=== PATIENT | female | born 1970 | race Caucasian/White ===

== ENCOUNTER 2020-12-28 11:46 | Outpatient (CLI) | payer OTHER, SELFPAY | END 2020-12-28 11:47 | disposition home or self-care (01) | LOC: ANHCOVIDVC 11:46 | PROVIDERS: PCP Family Medicine | DX: Z23 Encounter for immunization (principal) | CPT/HCPCS: 0001A; 91300 ==

== ENCOUNTER 2021-01-18 11:46 | Outpatient (CLI) | payer OTHER, SELFPAY | END 2021-01-18 11:47 | disposition home or self-care (01) | LOC: ANHCOVIDVC 11:46 | PROVIDERS: PCP Family Medicine | DX: Z23 Encounter for immunization (principal) | CPT/HCPCS: 0002A; 91300 ==

== ENCOUNTER → 2021-06-08 12:30 | Outpatient (CLI) | payer OTHER, SELFPAY ==
--- NOTE | ~2021-06-08 | DEXA_ITS ---
Bone Density Report Name: Lulu Martino Age: 51 Sex: Female Ethnicity: White Date of : 1970 Indication: postmenopausal; screening for osteoporosis; hysterectomy; Referring Provider: ADY GARY Study: Bone densitometry was performed. Exam Date: June 08, 2021 Accession number: [id number] Bone Density: Region BMD T-score Z-score Classification AP Spine (L1-L4) 0.965 -0.7 0.2 Normal Femoral Neck (Left) 0.680 -1.5 -0.6 Osteopenia Total Hip (Left) 0.850 -0.8 -0.2 Normal Femoral Neck (Right) 0.648 -1.8 -0.9 Osteopenia Total Hip (Right) 0.826 -0.9 -0.4 Normal Total Hip Mean 0.838 -0.9 -0.3 Normal World Health Organization criteria for BMD impression classify patients as: Normal (T-score at or above -1.0), Osteopenia (T-score between -1.0 and -2.5), or Osteoporosis (T-score at or below -2.5). 10-year Fracture Risk: FRAX not reported because: Treated for osteoporosis Clinical Information Provided by Patient: Is being treated for osteoporosis Has used the following medications: HRT (i.e. estrogen/hormone therapy), Vitamin D Has the following medical conditions: Hysterectomy Patient maximum height was 62 Menopause Age: 39 No regular weight bearing exercise Drinks caffeinated beverages Onset of menses at age 12 Number of children 2 Impression: The patient has low bone mass, based on the Right Femoral Neck T-score. Discussion: It is important to ask patients whether they are taking their medications and to encourage continued and appropriate compliance with their osteoporosis therapies to reduce fracture risk. It is also important to review their risk factors and encourage appropriate calcium and vitamin D intakes, exercise, fall prevention and other lifestyle measures. Follow-Up: Consider a repeat BMD and Vertebral Fracture Assessment (VFA) exam in 2 years or sooner if medically necessary, to reassess this patient's status. Reported by: LIZZIE on 06/08/2021 1:19:00 PM. Reviewed, dictated and finalized at location A. NORIS
== END ==
PROVIDERS: PCP Family Medicine; Visit Provider Obstetrics & Gynecology Gynecology
DX: M85.88 Other specified disorders of bone density and structure, other site (principal); Z78.0 Asymptomatic menopausal state; M85.852 Other specified disorders of bone density and structure, left thigh; M85.851 Other specified disorders of bone density and structure, right thigh
CPT/HCPCS: 77080

== ENCOUNTER → 2023-04-20 11:01 | Outpatient (CLI) | payer OTHER, SELFPAY ==
--- NOTE | ~2023-04-20 | XR_ITS ---
AP view of the pelvis and AP and lateral views of the bilateral hips Clinical history: Pain Findings: No acute fracture or dislocation is seen. Osseous alignment is anatomic. There is mild oste oarthritic change of both hip joints. Bilateral SI joints appear unremarkable. Soft tissues are unrem arkable. Impression: Mild osteoarthritic change of both hip joints. Reviewed, dictated and finalized at location . Impression: Mild osteoarthritic change of both hip joints.
== END ==
PROVIDERS: PCP Family Medicine; Visit Provider Internal Medicine
DX: M45.0 Ankylosing spondylitis of multiple sites in spine (principal); M46.1 Sacroiliitis, not elsewhere classified; M77.9 Enthesopathy, unspecified; M35.01 Sjogren syndrome with keratoconjunctivitis; M16.0 Bilateral primary osteoarthritis of hip
CPT/HCPCS: 73521

== ENCOUNTER 2024-06-27 08:03 | Outpatient (CLI) | payer OTHER, SELFPAY ==
--- NOTE | ~2024-06-27 | US_ITS ---
Abdominal Sonogram: Real-time sonographic imaging of the abdomen was performed. Clinical History: Abnormal findings of blood chemistry Findings: The liver appears normal with no evidence of mass lesion or bile duct dilatation. Main por rosalio vein demonstrates normal direction of flow. The spleen is normal in size without evidence of foca l lesion. The gallbladder is well distended, and appears normal with no evidence of gallstone or wal l thickening. The common bile duct measures 3 mm. The visualized pancreas, aorta, and IVC are unrema rkable. The right kidney measures 9.5 cm in length and the left kidney measures 8.4 cm. There is no hydronephrosis or renal calculus. Impression: Unremarkable abdominal ultrasound. Reviewed, dictated and finalized at location M. Impression: Unremarkable abdominal ultrasound.
== END 2024-06-27 08:04 | disposition home or self-care (01) ==
LOC: MICIMG 08:04
PROVIDERS: PCP Family Medicine; Visit Provider Physician Assistant Medical
DX: R79.89 Other specified abnormal findings of blood chemistry (principal)
CPT/HCPCS: 76700

== ENCOUNTER 2024-10-02 07:37 | Outpatient (CLI) | payer OTHER, SELFPAY ==
--- NOTE | ~2024-10-02 | DEXA_ITS ---
Bone Density Report Name: PRANAV BARAJAS Age: 54 Sex: Female Ethnicity: White Date of : 1970 Indication: postmenopausal; screening for osteoporosis; height loss; hysterectomy; Referring Provider: ADY GARY Study: Bone densitometry was performed. Exam Date: October 02, 2024 Accession number: [id number] Bone Density: Region BMD T-score Z-score Classification AP Spine(L1-L4) 0.971 -0.7 0.5 Normal Femoral Neck (Left) 0.653 -1.8 -0.6 Osteopenia Total Hip (Left) 0.848 -0.8 0.0 Normal Femoral Neck (Right) 0.641 -1.9 -0.7 Osteopenia Total Hip (Right) 0.824 -1.0 -0.2 Normal Total Hip Mean 0.836 -0.9 -0.1 Normal World Health Organization criteria for BMD impression classify patients as: Normal (T-score at or above -1.0), Osteopenia (T-score between -1.0 and -2.5), or Osteoporosis (T-score at or below -2.5). 10-year Fracture Risk(1): Major Osteoporotic Fracture 7.8% Hip Fracture 0.8% Reported Risk Factors: [place] (), Neck BMD=0.641, BMI=26.2 (1) FRAX(R) Version 3.08. Fracture probability calculated for an untreated patient. Fracture probability may be lower if the patient has received treatment. Clinical Information Provided by Patient: Has used the following medications: Vitamin D Has the following medical conditions: Hysterectomy Patient maximum height was 63.0 Menopause Age: 35 No regular weight bearing exercise Drinks caffeinated beverages Onset of menses at age 10 Number of children 2 Impression: The patient has low bone mass, based on the Right Femoral Neck T-score. The patient has an estimated ten-year risk of hip fracture of 0.8% and an estimated ten-year risk of major fracture of 7.8%, based on the WHO FRAX algorithm. Discussion: BONE DENSITY IS LOW AT ONE OR MORE SKELETAL SITES. This patient's lowest T-score is low at one or more skeletal sites. It meets the World Health Organization's (WHO) criteria for ?low bone mass? (T-score between -1.0 and -2.5). The patient's 10-year risk of fracture as calculated by FRAX is less than the threshold where pharmacological therapy is recommended by the National Osteoporosis Foundation (NOF). However, all treatment decisions require clinical judgment and consideration of individual patient factors, including patient preferences, comorbidities, previous drug use, risk factors not captured in the FRAX model (e.g., frailty, falls, vitamin D deficiency, increased bone turnover, interval significant decline in bone density) and possible under or overestimation of fracture risk by FRAX. The patient should follow a healthful lifestyle (good nutrition with adequate calcium and vitamin D, and appropriate weight-bearing exercise). Follow-Up: Consider repeating this study in 2 to 3 years to reassess this patient's status, or sooner if there is some new clinical indication. Reported by: LIZZIE on 10/02/2024 8:15:00 AM. Reviewed, dictated and finalized at location ANick HAMM
--- OUTSIDE RECORDS SUMMARY | 2024-10-03 21:18 | XMS_ITS | Referral Summary ---
Author Organization [facility] Address [address] [place] [address] Care Team Providers Care Sample Maker Hand Name Role Phone Jignesh Gonzalez MD Primary Care Provider [phone] Encounters Date Type Department Care Team Description 09/25/2024 2:45 PM DRAPERY CUTTER MACHINE - 09/25/2024 11:59 PM DRAPERY CUTTER MACHINE Hospital Encounter [facility] [address] [place] [phone] Right hip pain Discharge Disposition: Discharge to home or self care 09/25/2024 3:15 PM DRAPERY CUTTER MACHINE Office Visit [facility] Orthopaedic Surgery [facility] Medical Office Building [address] [place] [phone] Kurt Stoner MD Primary osteoarthritis of right hip (Primary Dx); Right hip pain 08/26/2024 11:08 AM DRAPERY CUTTER MACHINE - 08/26/2024 11:59 PM DRAPERY CUTTER MACHINE Hospital Encounter [facility] [address] [place] [address] Nilda Santana MD Densley, Ashton Deloy, DO Primary osteoarthritis of right hip Discharge Disposition: Discharge to home or self care 08/23/2024 Telephone [facility] Radiology [address] [place] [address] Lina Carter, B.A. 08/19/2024 8:00 AM DRAPERY CUTTER MACHINE Office Visit [facility] Orthopaedic Surgery [address] [place] [address] Medical Office Building [address] [place] [address] Francesca Steel PA Primary osteoarthritis of right hip (Primary Dx) 08/15/2024 10:00 AM DRAPERY CUTTER MACHINE - 08/15/2024 11:59 PM DRAPERY CUTTER MACHINE [facility] [address] [place] [address] [address] [phone] Primary osteoarthritis of right hip Discharge Disposition: Discharge to home or self care 08/15/2024 9:00 AM DRAPERY CUTTER MACHINE - 08/15/2024 11:59 PM DRAPERY CUTTER MACHINE Hospital Encounter [facility] [address] [place] [address] [address] [phone] Chronic low back pain, unspecified back pain laterality, unspecified whether sciatica present Discharge Disposition: Discharge to home or self care 08/15/2024 9:30 AM DRAPERY CUTTER MACHINE Office Visit [facility] Orthopaedic Surgery [address] [place] [address] Medical Office [facility] [address] [place] [phone] Denys Darden MD Chronic low back pain, unspecified back pain laterality, unspecified whether sciatica present (Primary Dx); Spinal stenosis of lumbar region, unspecified whether neurogenic claudication present; Bulging lumbar disc; Primary osteoarthritis of right hip 07/24/2024 6:09 PM DRAPERY CUTTER MACHINE - 07/24/2024 11:59 PM DRAPERY CUTTER MACHINE Hospital Encounter [facility] [address] [place] [address] Discharge Disposition: Discharge to home or self care 07/24/2024 6:07 PM DRAPERY CUTTER MACHINE - 07/24/2024 11:59 PM DRAPERY CUTTER MACHINE Hospital Encounter [facility] Radiology [facility] [address] [place] [address] Discharge Disposition: Discharge to home or self care from Last 3 Months Allergies Active Allergy Reactions Criticality Noted Date Comments Sulfa (Sulfonamide Antibiotics) Rash Reaction: RASH Sulfanilamide Rash Reaction: Rash, Medications Humira Pen 40 mg/0.8 mL pen injector kit 08/07/20 24 Active estradioL (CLIMARA) 0.1 mg/24 hr 1 patch(es), TransDermal, q7days, Patch, 0 06/15/20 13 Active folic acid (FOLVITE) 1 mg tablet 05/14/20 24 Active levothyroxine (SYNTHROID) 50 mcg tablet Take 1 tablet (50 mcg total) by mouth daily before breakfast Active meloxicam (MOBIC) 7.5 mg tablet TAKE 1 TABLET BY MOUTH DAILY NEEDED FOR ARTHRITIS DISCOMFORT 05/22/20 24 Active traZODone (DESYREL) 50 mg tablet 05/25/20 24 Active traMADoL (ULTRAM) 50 mg tablet TAKE 1 TABLET WITH TYLENOL BY MOUTH THREE TIMES DAILY FOR BAD PAIN CONTROL 08/11/20 24 Active spironolactone (ALDACTONE) 100 mg tablet Take 1 tablet (100 mg total) by mouth daily 07/11/20 24 Active cetirizine (ZyrTEC) 10 mg capsule 09/11/19 23 Active citalopram hydrobromide (CITALOPRAM ORAL) 09/11/19 20 Active magnesium citrate solution Take 296 mL by mouth once for 1 dose 296 mL 2 04/27/20 24 025 Discontinu ed(Therapy completed) estradioL (Vivelle-Dot) 0.1 mg/24 hr 1 patch(es), Topical, twice a week, 8 patch(es), Patch, 0 06/13/20 13 025 Discontinu ed(Therapy completed) mupirocin (BACTROBAN) 2 % ointmentIndicati ons:Prophylactic antibiotic Apply topically 2 (two) times a day for 5 days APPLY TO NOSTRILS TWICE A DAY. STARTING 5 DAYS PRIOR TO SURGERY. 22 g 09/26/19 25 025 Active Problems Problem Noted Date Diagnosed Date Primary osteoarthritis of right hip 09/26/2024 RUQ abdominal pain 08/15/2024 Regurgitation of food 08/15/2024 Other gastritis without bleeding 08/15/2024 Multiple thyroid nodules 08/15/2024 Gastro-esophageal reflux disease with esophagiti s 08/15/2024 Functional dyspepsia 08/15/2024 Dyspepsia 08/15/2024 Irritable bowel syndrome with constipation 08/15 Constipation 08/15/2024 Menopausal syndrome 03/28/2014 Overview (12/16/2016): Menopausal syndrome Thyroid nodule 11/04/2013 Dry eyes 11/04/2013 Immunizations Name Administration Dates Next Due Influenza, Unspecified 06/11/2012 Tdap 07/07/2024 Social History Tobacco Use Types Packs/Day Years Used Date Smoking Tobacco: Never Cigarettes Smokeless Tobacco: Never Tobacco Cessation:Counseling Given: Not Answered Alcohol Use Standard Drinks/Week Comments Yes 0 (1 standard drink = 0.6 oz pur e alcohol) Personal Safety Answer Date Recorded Have you ever been in or are you currently in a harmful physical or emotional relationship or is someone making you feel afraid or unsafe? 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 on file Not on file Not on file Last Filed Vital Signs Vital Sign Reading Time Taken Comments Blood Pressure 124/71 08/26/2024 11:33 AM DRAPERY CUTTER MACHINE Pulse 71 08/26/2024 11:33 AM DRAPERY CUTTER MACHINE Temperature 36.6 ??C (97.9 ??F) 08/26/2024 11:[address] Respiratory Rate 20 08/26/2024 11:33 AM DRAPERY CUTTER MACHINE Oxygen Saturation 99% 08/26/2024 11:33 AM DRAPERY CUTTER MACHINE Inhaled Oxygen Concentration - - Weight 59.9 kg (132 lb) 09/25/2024 4:08 PM DRAPERY CUTTER MACHINE Height 160 cm (5' 3 ) 09/25/2024 4:08 PM DRAPERY CUTTER MACHINE Body Mass Index 23.38 09/25/2024 4:08 PM DRAPERY CUTTER MACHINE Plan of Treatment Upcoming Encounters Date Type Department Care Team (Latest Contact Info) Description 11/19/2024 1:05 PM CDT Hospital Encounter [facility] Operating Room [address] [address] Kurt Stoner MD [address] [facility] [address] [place] [address] 11/19/2024 1:05 PM CDT - 11/19/2024 3:45 PM CDT Surgery [facility] Operating Room [address] [address] Kurt Stoner MD [address] [facility] [address] [place] [address] ARTHROPLASTY TOTAL HIP - ANTERIOR APPROACH Scheduled Procedures Name Priority Associated Diagnoses Date/Ti me ARTHROPLASTY TOTAL HIP - ANTERIOR APPROACH Primary osteoarthritis of right hip 11/19/2024 1:05 PM CDT Procedures Procedure Name Priority Date/Time Associated Diagnosis Comments XR PELVIS 1 OR 2 VIEWS Schedule Routine, Read Routine (OP Routine) 09/25/2024 3:31 PM DRAPERY CUTTER MACHINE Right hip pain XR SCOLIOSIS AP LAT Schedule Routine, Read Routine (OP Routine) 09/25/2024 3:31 PM DRAPERY CUTTER MACHINE Right hip pain FLUORO GUIDED INJECTION HIP RIGHT Schedule Routine, Read Routine (OP Routine) 08/26/2024 12:26 PM DRAPERY CUTTER MACHINE Primary osteoarthritis of right hip XR HIP RIGHT W PELVIS 2 OR 3 VIEWS Schedule Routine, Read Routine (OP Routine) 08/15/2024 11:14 AM DRAPERY CUTTER MACHINE Primary osteoarthritis of right hip XR LUMBAR SPINE AP LAT FLEX EX Schedule Routine, Read Routine (OP Routine) 08/15/2024 9:44 AM DRAPERY CUTTER MACHINE Chronic low back pain, unspecified back pain laterality, unspecified whether sciatica present NEURO MR OUTSIDE REFERENCE Routine 07/24/2024 6:09 PM DRAPERY CUTTER MACHINE MSK MR OUTSIDE REFERENCE Routine 07/24/2024 6:07 PM DRAPERY CUTTER MACHINE from Last 3 Months Results * XR Pelvis 1 or 2 Views (09/25/2024 3:31 PM DRAPERY CUTTER MACHINE) Anatomical Region Laterality Modality Body, Pelvis N/A Computed Radiogr aphy 09/25/2024 4:11 PM DRAPERY CUTTER MACHINE Impressions 09/25/2024 4:11 PM DRAPERY CUTTER MACHINE 1. ??Mild L3-L4 and moderate L5-S1 degenerative disc disease as well as mild multilevel cervical degenerative disc disease. 2. ??Unchanged grade 1 anterolisthesis of L3 on L4. Electronically signed by: Mj Gibson D.O. Narrative 09/25/2024 4:11 PM DRAPERY CUTTER MACHINE EXAMINATION: XR SCOLIOSIS AP AND LATERAL, XR PELVIS 1 OR 2 VIEWS HISTORY: Hip Pain FINDINGS: Comparison is made to 08/15/2024 lumbar radiograph. No significant scoliotic curvature. There is minimal rotatory proximal segment thoracolumbar dextrocurvature. No significant truncal imbalance or pelvic obliquity. Mild L3-L4 and mild to moderate L5-S1 degenerative disc disease. Straightening of the cervical spine with mild multilevel cervical degenerative disc disease. Minimal grade 1 anterolisthesis of L3 on L4, unchanged from prior. Procedure Note Mj Gibson, DO - 09/25/2024 EXAMINATION: XR SCOLIOSIS AP AND LATERAL, XR PELVIS 1 OR 2 VIEWS HISTORY: Hip Pain FINDINGS: Comparison is made to 08/15/2024 lumbar radiograph. No significant scoliotic curvature. There is minimal rotatory proximal segment thoracolumbar dextrocurvature. No significant truncal imbalance or pelvic obliquity. Mild L3-L4 and mild to moderate L5-S1 degenerative disc disease. Straightening of the cervical spine with mild multilevel cervical degenerative disc disease. Minimal grade 1 anterolisthesis of L3 on L4, unchanged from prior. IMPRESSION: 1. Mild L3-L4 and moderate L5-S1 degenerative disc disease as well as mild multilevel cervical degenerative disc disease. 2. Unchanged grade 1 anterolisthesis of L3 on L4. Electronically signed by: Mj Gibson D.O. Kurt Stoner MD IMG XR PROCEDURES Final Result * XR Scoliosis Ap and Lateral (09/25/2024 3:31 PM DRAPERY CUTTER MACHINE) Anatomical Region Laterality Modality Spine N/A Computed Radiogr aphy 09/25/2024 4:11 PM DRAPERY CUTTER MACHINE Impressions 09/25/2024 4:11 PM DRAPERY CUTTER MACHINE 1. ??Mild L3-L4 and moderate L5-S1 degenerative disc disease as well as mild multilevel cervical degenerative disc disease. 2. ??Unchanged grade 1 anterolisthesis of L3 on L4. Electronically signed by: Mj Gibson D.O. Narrative 09/25/2024 4:11 PM DRAPERY CUTTER MACHINE EXAMINATION: XR SCOLIOSIS AP AND LATERAL, XR PELVIS 1 OR 2 VIEWS HISTORY: Hip Pain FINDINGS: Comparison is made to 08/15/2024 lumbar radiograph. No significant scoliotic curvature. There is minimal rotatory proximal segment thoracolumbar dextrocurvature. No significant truncal imbalance or pelvic obliquity. Mild L3-L4 and mild to moderate L5-S1 degenerative disc disease. Straightening of the cervical spine with mild multilevel cervical degenerative disc disease. Minimal grade 1 anterolisthesis of L3 on L4, unchanged from prior. Procedure Note Mj Gibson, DO - 09/25/2024 EXAMINATION: XR SCOLIOSIS AP AND LATERAL, XR PELVIS 1 OR 2 VIEWS HISTORY: Hip Pain FINDINGS: Comparison is made to 08/15/2024 lumbar radiograph. No significant scoliotic curvature. There is minimal rotatory proximal segment thoracolumbar dextrocurvature. No significant truncal imbalance or pelvic obliquity. Mild L3-L4 and mild to moderate L5-S1 degenerative disc disease. Straightening of the cervical spine with mild multilevel cervical degenerative disc disease. Minimal grade 1 anterolisthesis of L3 on L4, unchanged from prior. IMPRESSION: 1. Mild L3-L4 and moderate L5-S1 degenerative disc disease as well as mild multilevel cervical degenerative disc disease. 2. Unchanged grade 1 anterolisthesis of L3 on L4. Electronically signed by: Mj Gibson D.O. Kurt Stoner MD IMG XR PROCEDURES Final Result * FL Fluoro Guided Injection Hip Right (08/26/2024 12:26 PM DRAPERY CUTTER MACHINE) Anatomical Region Laterality Modality Hip Right X-Ray Angiograph y 08/26/2024 12:2 9 PM DRAPERY CUTTER MACHINE Impressions 08/26/2024 5:19 PM DRAPERY CUTTER MACHINE Successful right hip joint injection under fluoroscopic guidance with reduction of the patient's presenting pain at the conclusion of the procedure. Dictated by: Farida Davis MD, PhD The radiology attending physician has personally reviewed this study, and had reviewed and/or edited this written report and agrees with it. Electronically signed by: Mj Gibson D.O. Narrative 08/26/2024 5:19 PM DRAPERY CUTTER MACHINE EXAMINATION: ??Right hip joint injection under fluoroscopic guidance HISTORY: 54-year-old with right hip osteoarthritis presenting for right hip joint injection ATTENDING PRESENCE: Mj Gibson D.O., was present from the beginning to the end of the procedure. Dr. Farida Davis (global consumer sector vice president) was present and participated in the procedure. SEDATION: The patient did not require conscious sedation for the procedure. TECHNIQUE: ??The risks, benefits and alternatives were discussed and informed consent was obtained. ??Prior to beginning the procedure, [place] Protocol was performed to confirm the patient's identity and the planned procedure. Sterile barriers used during the procedure included cap, mask, hand hygiene, sterile gloves, and sterile drape. ??Chloraprep was used for cutaneous antisepsis. The patient was placed supine on the procedure table. The right hip joint was localized with fluoroscopic guidance. ??Local anesthesia was achieved with subcutaneous injection of 1% lidocaine 2 mL. ??A 22-gauge needle was then introduced into the joint under imaging guidance. ??5 mL of Omnipaque 300 was injected to verify intra-articular position of the needle tip. A mixture containing Kenalog (40 mg/mL) 1 mL, 0.25% bupivacaine 1 mL, and Omnipaque-300 1mL was then injected into the joint. ??The needle was removed. ??The skin was cleansed with hydrogen peroxide, and a bandage was placed. ?? Complication: None Type: None ?? ESTIMATED BLOOD LOSS: None CONDITION: Stable condition. DISCHARGED TO: Home FINDINGS: Imaging confirms intra-articular position of the needle tip. ?? Following the injection, the patient reported reduction in symptoms. Procedure Note Mj Gibson DO - 08/26/2024 EXAMINATION: Right hip joint injection under fluoroscopic guidance HISTORY: 54-year-old with right hip osteoarthritis presenting for right hip joint injection ATTENDING PRESENCE: Mj Gibson D.O., was present from the beginning to the end of the procedure. Dr. Farida Davis (global consumer sector vice president) was present and participated in the procedure. SEDATION: The patient did not require conscious sedation for the procedure. TECHNIQUE: The risks, benefits and alternatives were discussed and informed consent was obtained. Prior to beginning the procedure, [place] Protocol was performed to confirm the patient's identity and the planned procedure. Sterile barriers used during the procedure included cap, mask, hand hygiene, sterile gloves, and sterile drape. Chloraprep was used for cutaneous antisepsis. The patient was placed supine on the procedure table. The right hip joint was localized with fluoroscopic guidance. Local anesthesia was achieved with subcutaneous injection of 1% lidocaine 2 mL. A 22-gauge needle was then introduced into the joint under imaging guidance. 5 mL of Omnipaque 300 was injected to verify intra-articular position of the needle tip. A mixture containing Kenalog (40 mg/mL) 1 mL, 0.25% bupivacaine 1 mL, and Omnipaque-300 1mL was then injected into the joint. The needle was removed. The skin was cleansed with hydrogen peroxide, and a bandage was placed. Complication: None Type: None ESTIMATED BLOOD LOSS: None CONDITION: Stable condition. DISCHARGED TO: Home FINDINGS: Imaging confirms intra-articular position of the needle tip. Following the injection, the patient reported reduction in symptoms. IMPRESSION: Successful right hip joint injection under fluoroscopic guidance with reduction of the patient's presenting pain at the conclusion of the procedure. Dictated by: Farida Davis MD, PhD The radiology attending physician has personally reviewed this study, and had reviewed and/or edited this written report and agrees with it. Electronically signed by: Mj Gibson D.O. Francesca ZUNIGA IMG FLUOROSCOPY PROC EDURES Final Result * XR Hip Right W Pelvis 2 or 3 Views (08/15/2024 11:14 AM DRAPERY CUTTER MACHINE) Anatomical Region Laterality Modality Lower Extremities, Hip, Pelvis Right C omputed Radiography 08/15/2024 11:5 9 AM DRAPERY CUTTER MACHINE Impressions 08/15/2024 11:59 AM DRAPERY CUTTER MACHINE Moderate right hip osteoarthritis. Electronically signed by: Andi Faria M.D. Narrative 08/15/2024 11:59 AM DRAPERY CUTTER MACHINE EXAMINATION: XR HIP RIGHT 2 OR 3 VIEWS W PELVIS HISTORY: Hip osteoarthritis FINDINGS: 2 views of the right hip and pelvis were performed without comparison. ??There is moderate right and mild left hip osteoarthritis. ??There is no acute fracture of the right hip or the pelvis. Procedure Note Andi Faria MD PhD - 08/15/2024 EXAMINATION: XR HIP RIGHT 2 OR 3 VIEWS W PELVIS HISTORY: Hip osteoarthritis FINDINGS: 2 views of the right hip and pelvis were performed without comparison. There is moderate right and mild left hip osteoarthritis. There is no acute fracture of the right hip or the pelvis. IMPRESSION: Moderate right hip osteoarthritis. Electronically signed by: Andi Faria M.D. us Denys Darden MD IMG XR PROCEDURES Regine l Result * XR Spine Lumbar Ap Lat Flex Ext min 4 Views (08/15/2024 9:44 AM DRAPERY CUTTER MACHINE) Anatomical Region Laterality Modality L-spine N/A Computed Radiogr aphy 08/15/2024 9:48 AM DRAPERY CUTTER MACHINE Impressions 08/15/2024 9:48 AM DRAPERY CUTTER MACHINE 1. ??Grade 1 L3 on L4 anterolisthesis with moderate degenerative disc changes at L3-L4 and L5-S1. 2. ??Hypomobility of the lumbar spine. Electronically signed by: Venkata Field D.O. Narrative 08/15/2024 9:48 AM DRAPERY CUTTER MACHINE EXAMINATION: XR SPINE LUMBAR AP LAT FLEX EXT MIN 4 VIEWS HISTORY: LOW BACK PAIN COMPARISON: Outside MRI 07/18/2024, CT 04/26/2024 FINDINGS: Grade 1 L3 on L4 anterolisthesis. ??No dynamic instability. Hypomobile lumbar spine. ??Normal vertebral body heights. ??Moderate degenerative disc changes L3-L4 and L5-S1. ??Moderate lower lumbar facet arthropathy. ?? Procedure Note Venkata Field DO - 08/15/2024 EXAMINATION: XR SPINE LUMBAR AP LAT FLEX EXT MIN 4 VIEWS HISTORY: LOW BACK PAIN COMPARISON: Outside MRI 07/18/2024, CT 04/26/2024 FINDINGS: Grade 1 L3 on L4 anterolisthesis. No dynamic instability. Hypomobile lumbar spine. Normal vertebral body heights. Moderate degenerative disc changes L3-L4 and L5-S1. Moderate lower lumbar facet arthropathy. IMPRESSION: 1. Grade 1 L3 on L4 anterolisthesis with moderate degenerative disc changes at L3-L4 and L5-S1. 2. Hypomobility of the lumbar spine. Electronically signed by: Venkata Field D.O. Denys Darden MD IMG XR PROCEDURES Regine l Result * Neuro MR Outside Reference (07/24/2024 6:09 PM DRAPERY CUTTER MACHINE) Impressions RAD_PACS_[facility] - 07/24/2024 6:09 PM DRAPERY CUTTER MACHINE These images are for Reference purposes only and have not been reviewed by [facility] Radiology. ??There will be no report generated by a [facility] Radiologist. Narrative RAD_PACS_[facility] - 07/24/2024 6:09 PM DRAPERY CUTTER MACHINE EXAMINATION: ??Images For Reference Purposes Only Denys Darden MD G MRI PROCEDURES Fin al Result Performing Organization Address [facility] de Phone Number RAD_PACS[facility] * MSK MR Outside Reference (07/24/2024 6:07 PM DRAPERY CUTTER MACHINE) Impressions RAD_PACS[facility] - 07/24/2024 6:07 PM DRAPERY CUTTER MACHINE These images are for Reference purposes only and have not been reviewed by [facility]iology. ??There will be no report generated by a [facility] Radiologist. Narrative RAD_PACS_[facility] - 07/24/2024 6:07 PM DRAPERY CUTTER MACHINE EXAMINATION: ??Images For Reference Purposes Only Denys Darden MD [facility] MRI PROCEDURES Fin al Result Performing Organization Address [facility] de Phone Number [facility]_P[facility] from Last 3 Months Insurance [employer] [facility] Care Teams Sample Maker Hand Relationship Specialty Start Date End Date Jignesh Gonzalez MD [address] [place] [address] PCP - General Family Medicine 08/20/24
--- OUTSIDE RECORDS SUMMARY | 2024-10-03 21:18 | XMS_ITS | Clinical Summary ---
Author Organization [facility] Address [address] [place] [address]. [place] [address] [place] [address] Care Team Providers Care Quality Engineer Medical Device Name Role Phone Jignesh Gonzalez MD Primary Care Provider [phone] Social History Tobacco Use Types Packs/Day Years Used Date Smoking Tobacco: Never Assessed Comments Unknown Sex and Gender Information Value Date Recorded Sex Assigned at Not on file Legal Sex Female 9:54 AM SALVAGE ENGINEERING TECHNICIAN Gender Identity Not on file Sexual Orientation Not on file Plan of Treatment Health Maintenance Due Date Last Done Comments Cervical Cancer Screening Pa p Smear (Age 30 to 64) Every 3 Years 1968 Colorectal Cancer Screening Colonoscopy (10 Years) 1968 Annual Physical 1971 Hepatitis C 1986 DTaP, Tdap and Td Vaccines ( 1 - Tdap) 1987 Hepatitis B Vaccines (1 of 3 - 19+ 3-dose series) 1987 Cervical Cancer Screening Pa p with HPV Testing (Age 30 to 64) Every 5 Years 1998 Cervical Cancer Screening with HPV 1998 Mammogram Screening 2008 Zoster Vaccines (1 of 2) 2018 COVID-19 Vaccine (2023-2 5 season) 2024 Influenza Adult (#1) 2024 Meningococcal Vaccine Aged Out No randy reid eligible based on patient's age to complete this topic Pneumococcal Vaccine: Pediat rics (0 to 5 Years) and At-Risk Patients (6 to 64 Years) Aged Out No longer eligible b ased on patient's age to complete this topic RSV Immunizations Under 20 Months Aged Out No longer eligible based on patient's age to complete this topic Insurance Care Teams Quality Engineer Medical Device Relationship Specialty Start Date End Date Jignesh Gonzalez MD [address] [address] PCP - General FAMILY PRACTICE 10/15/18
--- OUTSIDE RECORDS SUMMARY | 2024-10-03 21:18 | XMS_ITS | Continuity of Care Document ---
Author Organization [facility] Address [address] [place] [address] Phone Care Team Providers Care Legal Practice Manager Name Role Phone No Information Unavailable Unavailable Advance Directives Directive Yes / No Effective Date File Name No Information Encounters Encounter Description Practice Location Reason(s) For Visit Diagnoses Date Provider Providers Copied on Encounter [facility], [address], [place], [place], [id number], [place] tel:[phone] No Information No Information Family History Family Member Type Diagnosis Age At Onset No Information Payers Payer name Insurance type Covered green party ID Authoriza tion(s) No Information Social History Type Description Quantity Date Captured Comments Sex Female Smoking Status No Information Chief Complaint And Reason For Visit No Information Reason For Referral Reason For Referral No Information History Of Present Illness Encounter Date Complaint History Of Prese nt Illness No Information Functional Status Date Functional Assessmen t No Information Instructions Date Instruction Additional Infor mation No Information Assessments Type Assessment Date No Information Patient Care Teams Name Effective Dates (start - stop) Status Members No Information
--- OUTSIDE RECORDS SUMMARY | 2024-10-03 21:18 | XMS_ITS | Clinical Summary ---
Author Organization [facility] Address [address] [place] [address] Care Team Providers Care Director Mobile Name Role Phone Jignesh Gonzalez MD Primary Care Provider [phone] Allergies Active Allergy Reactions Criticality Noted Date [...] syndrome Thyroid nodule 11/04/2013 Dry eyes 11/04/2013 Encounters Date Type Department Care Team Description 09/25/2024 3:15 PM REAL ESTATE INTERN Office Visit [facility] Orthopaedic Surgery [address] [place] [address] Medical Office Building [address] [place] [phone] Kurt Stoner MD Primary osteoarthritis of right hip (Primary Dx); Right hip pain 09/25/2024 2:45 PM REAL ESTATE INTERN - 09/25/2024 11:59 PM REAL ESTATE INTERN Hospital Encounter [id number] [address] [place] [phone] Right hip pain Discharge Disposition: Discharge to home or self care 08/26/2024 11:08 AM REAL ESTATE INTERN - 08/26/2024 11:59 PM REAL ESTATE INTERN Hospital Encounter [facility] [address] [place] [phone] Nilda Santana MD Densley, Ashton Deloy, DO Primary osteoarthritis of right hip Discharge Disposition: Discharge to home or self care 08/23/2024 Telephone Radiology [address] [place] [address] Lina Carter B.A. 08/19/2024 8:00 AM REAL ESTATE INTERN Office Visit [facility] Orthopaedic Surgery [address] [place] [address] Medical Office Building [address] [place] [phone] Francesca Steel PA Primary osteoarthritis of right hip (Primary Dx) 08/15/2024 10:00 AM REAL ESTATE INTERN - 08/15/2024 11:59 PM REAL ESTATE INTERN Hospital Encounter [facility] Radiology [address] [place] [address] [address] [place] [phone] Primary osteoarthritis of right hip Discharge Disposition: Discharge to home or self care 08/15/2024 9:30 AM REAL ESTATE INTERN Office Visit [facility] Orthopaedic Surgery [address] [place] [address] Medical Office [facility] [address] [phone] Denys Darden MD Chronic low back pain, unspecified back pain laterality, unspecified whether sciatica present (Primary Dx); Spinal stenosis of lumbar region, unspecified whether neurogenic claudication present; Bulging lumbar disc; Primary osteoarthritis of right hip 08/15/2024 9:00 AM REAL ESTATE INTERN - 08/15/2024 11:59 PM REAL ESTATE INTERN Hospital Encounter [facility] Radiology [address] [place], [place] [address] [place] [phone] Chronic low back pain, unspecified back pain laterality, unspecified whether sciatica present Discharge Disposition: Discharge to home or self care 07/24/2024 6:09 PM REAL ESTATE INTERN - 07/24/2024 11:59 PM REAL ESTATE INTERN Hospital Encounter [facility] [address] [place] [address] Discharge Disposition: Discharge to home or self care 07/24/2024 6:07 PM REAL ESTATE INTERN - 07/24/2024 11:59 PM REAL ESTATE INTERN Hospital Encounter Rad[facility] [address] [place] [address] [place] [address] Discharge Disposition: Discharge to home or self care from Last 3 Months Immunizations Name Administration Dates Next Due Influenza, Unspecified 06/11/2012 Tdap 07/07/2024 Surgical History Surgery Date Site/Laterality Comments OTHER SURGICAL HISTORY 1991 : OTHER SURGICAL HISTORY 1993 : AUGMENTATION MAMMOPLASTY augmentation mammoplasty OTHER SURGICAL HISTORY Endometriosis: hysterectomy: TLH/BSO OTHER SURGICAL HISTORY thyroid nodule: partial thyroidectomy HYSTERECTOMY FLUORO GUIDED INJECTION HIP RIGHT 08/26/2024 Right BREAST SURGERY 2007 Medical History Medical History Date Comments Hx Other Medical 1991 ; Outc ome: 7 lb(s) 8 oz Unknown sex Hx Other Medical 1993 ; Outc ome: 6 lb(s) 10 oz Unknown sex Hx Other Medical Breast nodule; Comments: H/o breast cysts, followed by breast center Endometritis 2010 Endometriosis Hx Other Medical 06/14/2013 thyroid nodule Anxiety GERD (gastroesophageal reflu x disease) Thyroid disease Urinary tract infection Autoimmune disease (CMS/HCC) (HCC) ankylosing spondylosis Family History Medical History Relation Name Comments Alcohol abuse Father Venkata Moreno Colon cancer Father Venkata Moreno Cancer, colon ; Drug abuse Father Venkata Moreno Breast cancer Maternal Grandmother Cancer , breast; Cancer Sister Katelyn Nathan Relation Name Status Comments Father Venkata Moreno Maternal Grandmother Alive Sister Katelyn Nathan Social History Tobacco Use Types Packs/Day Years [...] on file Legal Sex Female 7:59 PM REAL ESTATE INTERN Gender Identity Not on file Sexual Orientation Not on file 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 Not on file Not on file Not on file Obstetrics History Last Filed Vital Signs Vital Sign Reading Time Taken Comments Blood Pressure 124/71 08/26/2024 11:33 AM REAL ESTATE INTERN Pulse 71 08/26/2024 11:33 AM REAL ESTATE INTERN Temperature 36.6 ??C (97.9 ??F) 08/26/2024 11:[address] Respiratory Rate 20 08/26/2024 11:33 AM REAL ESTATE INTERN Oxygen Saturation 99% 08/26/2024 11:33 AM REAL ESTATE INTERN Inhaled Oxygen Concentration - - Weight 59.9 kg (132 lb) 09/25/2024 4:08 PM REAL ESTATE INTERN Height 160 cm (5' 3 ) 09/25/2024 4:08 PM REAL ESTATE INTERN Body Mass Index 23.38 09/25/2024 4:08 PM REAL ESTATE INTERN Plan of Treatment Upcoming Encounters Date Type Department Care Team (Latest Contact Info) Description 11/19/2024 1:05 PM CDT Hospital Encounter [facility] Operating Room [address] [address] Kurt Stoner MD [address] [address] 11/19/2024 1:05 PM CDT - 11/19/2024 3:45 PM CDT Surgery [facility] Operating Room [address] [address] Kurt Stoner MD [address] [place] [address] ARTHROPLASTY TOTAL HIP - ANTERIOR APPROACH Scheduled Procedures Name Priority Associated Diagnoses Date/Ti me ARTHROPLASTY TOTAL HIP - ANTERIOR APPROACH Primary osteoarthritis of right hip 11/19/2024 1:05 PM CDT Health Maintenance Due Date Last Done Comments Breast Cancer Screening-Mammogram 1968 Colon Cancer Screening-Colonoscopy 1968 Depression Screening 1968 Hepatitis C Screening 1968 Hepatitis B Screening 1986 Regular Well Visit/Exam 18-64 1986 Zoster Vaccine (1 of 2) 2018 Covid-19 Vaccine ( season) 2024 08/26/2022, 09/14/2021, 01/18/2021, Additional history exists Influenza Vaccine (#1) 2024 06/11/2012 DTaP/Tdap/Td Vaccine (2 - Td or Tdap) 07/07/2034 07/07/2024 Pneumococcal vaccine <65 Aged Out No longer eligible based on patient's age to complete this topic Procedures Procedure Name Priority Date/Time Associated Diagnosis Comments XR PELVIS 1 OR 2 VIEWS Schedule Routine, Read Routine (OP Routine) 09/25/2024 3:31 PM REAL ESTATE INTERN Right hip pain XR SCOLIOSIS AP LAT Schedule Routine, Read Routine (OP Routine) 09/25/2024 3:31 PM REAL ESTATE INTERN Right hip pain FLUORO GUIDED INJECTION HIP RIGHT Schedule Routine, Read Routine (OP Routine) 08/26/2024 12:26 PM REAL ESTATE INTERN Primary osteoarthritis of right hip XR HIP RIGHT W PELVIS 2 OR 3 VIEWS Schedule Routine, Read Routine (OP Routine) 08/15/2024 11:14 AM REAL ESTATE INTERN Primary osteoarthritis of right hip XR LUMBAR SPINE AP LAT FLEX EX Schedule Routine, Read Routine (OP Routine) 08/15/2024 9:44 AM REAL ESTATE INTERN Chronic low back pain, unspecified back pain laterality, unspecified whether sciatica present NEURO MR OUTSIDE REFERENCE Routine 07/24/2024 6:09 PM REAL ESTATE INTERN MSK MR OUTSIDE REFERENCE Routine 07/24/2024 6:07 PM REAL ESTATE INTERN from Last 3 Months Results * XR Pelvis 1 or 2 Views (09/25/2024 3:31 PM REAL ESTATE INTERN) Anatomical Region Laterality Modality Body, Pelvis N/A Computed Radiogr aphy 09/25/2024 4:11 PM REAL ESTATE INTERN Impressions 09/25/2024 4:11 PM REAL ESTATE INTERN 1. ??Mild L3-L4 and moderate L5-S1 degenerative disc disease as well as mild multilevel cervical degenerative disc disease. 2. ??Unchanged grade 1 anterolisthesis of L3 on L4. Electronically signed by: Mj Gibson D.O. Narrative 09/25/2024 4:11 PM REAL ESTATE INTERN EXAMINATION: XR SCOLIOSIS AP AND LATERAL, XR [...] Scoliosis Ap and Lateral (09/25/2024 3:31 PM REAL ESTATE INTERN) Anatomical Region Laterality Modality Spine N/A Computed Radiogr aphy 09/25/2024 4:11 PM REAL ESTATE INTERN Impressions 09/25/2024 4:11 PM REAL ESTATE INTERN 1. ??Mild L3-L4 and moderate L5-S1 degenerative disc disease as well as mild multilevel cervical degenerative disc disease. 2. ??Unchanged grade 1 anterolisthesis of L3 on L4. Electronically signed by: Mj Gibson D.O. Narrative 09/25/2024 4:11 PM REAL ESTATE INTERN EXAMINATION: XR SCOLIOSIS AP AND LATERAL, XR [...] Guided Injection Hip Right (08/26/2024 12:26 PM REAL ESTATE INTERN) Anatomical Region Laterality Modality Hip Right X-Ray Angiograph y 08/26/2024 12:2 9 PM REAL ESTATE INTERN Impressions 08/26/2024 5:19 PM REAL ESTATE INTERN Successful right hip joint injection under fluoroscopic guidance with reduction of the patient's presenting pain at the conclusion of the procedure. Dictated by: Farida Davis MD, PhD The radiology attending physician has personally reviewed this study, and had reviewed and/or edited this written report and agrees with it. Electronically signed by: Mj Gibson D.O. Narrative 08/26/2024 5:19 PM REAL ESTATE INTERN EXAMINATION: ??Right hip joint injection under fluoroscopic guidance HISTORY: 54-year-old with right hip osteoarthritis presenting for right hip joint injection ATTENDING PRESENCE: Mj Gibson D.O., was present from the beginning to the end of the procedure. Dr. Farida Davis (radiology physician assistant) was present and participated in the procedure. SEDATION: The patient did not require conscious sedation for the procedure. TECHNIQUE: ??The risks, benefits and alternatives were discussed and informed consent was obtained. ??Prior to beginning the procedure, [place] Protocol was performed to confirm the patient's [...] reported reduction in symptoms. Procedure Note Mj Gibson, DO - 08/26/2024 EXAMINATION: Right hip joint injection under fluoroscopic guidance HISTORY: 54-year-old with right hip osteoarthritis presenting for right hip joint injection ATTENDING PRESENCE: Mj Gibson D.O., was present from the beginning to the end of the procedure. Dr. Farida Davis (radiology physician assistant) was present and participated in the procedure. SEDATION: The patient did not require conscious sedation for the procedure. TECHNIQUE: The risks, benefits and alternatives were discussed and informed consent was obtained. Prior to beginning the procedure, [place] Protocol was performed to confirm the patient's [...] signed by: Mj Gibson D.O. Francesca ZUNIGA IM FLUOROSCOPY PROC EDURES Final Result * XR Hip Right W Pelvis 2 or 3 Views (08/15/2024 11:14 AM REAL ESTATE INTERN) Anatomical Region Laterality Modality Lower Extremities, Hip, Pelvis Right C omputed Radiography 08/15/2024 11:5 9 AM REAL ESTATE INTERN Impressions 08/15/2024 11:59 AM REAL ESTATE INTERN Moderate right hip osteoarthritis. Electronically signed by: Andi Faria M.D. Narrative 08/15/2024 11:59 AM REAL ESTATE INTERN EXAMINATION: XR HIP RIGHT 2 OR 3 [...] osteoarthritis. Electronically signed by: Andi Faria M.D. Denys Darden MD [facility] XR PROCEDURES Regine l Result * XR Spine Lumbar Ap Lat Flex Ext min 4 Views (08/15/2024 9:44 AM REAL ESTATE INTERN) Anatomical Region Laterality Modality L-spine N/A Computed Radiogr aphy 08/15/2024 9:48 AM REAL ESTATE INTERN Impressions 08/15/2024 9:48 AM REAL ESTATE INTERN 1. ??Grade 1 L3 on L4 anterolisthesis with moderate degenerative disc changes at L3-L4 and L5-S1. 2. ??Hypomobility of the lumbar spine. Electronically signed by: Venkata Field D.O. Narrative 08/15/2024 9:48 AM REAL ESTATE INTERN EXAMINATION: XR SPINE LUMBAR AP LAT FLEX EXT MIN 4 VIEWS HISTORY: LOW BACK PAIN COMPARISON: Outside MRI 07/18/2024, CT 04/26/2024 FINDINGS: Grade 1 L3 on L4 anterolisthesis. ??No dynamic instability. Hypomobile lumbar spine. ??Normal vertebral body heights. ??Moderate degenerative disc changes L3-L4 and L5-S1. ??Moderate lower lumbar facet arthropathy. ?? Procedure Note Venkata Field, DO - 08/15/2024 EXAMINATION: XR SPINE LUMBAR [...] Neuro MR Outside Reference (07/24/2024 6:09 PM REAL ESTATE INTERN) Impressions RAD_[facility] - 07/24/2024 6:09 PM REAL ESTATE INTERN These images are for Reference purposes only and have not been reviewed by [facility] Radiology. ??There will be no report generated by a [facility] Radiologist. Narrative [facility] - 07/24/2024 6:09 PM REAL ESTATE INTERN EXAMINATION: ??Images For Reference Purposes Only Denys Darden MD IMG MRI PROCEDURES Fin al Result Performing Organization Address [facility] Co de Phone Number [email or web address] * MSK MR Outside Reference (07/24/2024 6:07 PM REAL ESTATE INTERN) Impressions [facility] - 07/24/2024 6:07 PM REAL ESTATE INTERN These images are for Reference purposes only and have not been reviewed by [facility] Radiology. ??There will be no report generated by a [facility] Radiologist. Narrative RAD_[facility] - 07/24/2024 6:07 PM REAL ESTATE INTERN EXAMINATION: ??Images For Reference Purposes Only Denys Darden MD IMG MRI PROCEDURES Fin al Result Performing Organization Address [facility] Co de Phone Number [facility] from Last 3 Months Insurance [facility] [facility] Care Teams Director Mobile Relationship Specialty Start Date End Date Jignesh Gonzalez MD [address] [place] [address] PCP - General Family Medicine 08/20/24
== END 2024-10-02 07:38 | disposition home or self-care (01) ==
LOC: ANHIMG 07:45
PROVIDERS: PCP Family Medicine; Visit Provider Obstetrics & Gynecology Gynecology
DX: Z78.0 Asymptomatic menopausal state (principal); M85.852 Other specified disorders of bone density and structure, left thigh; M85.851 Other specified disorders of bone density and structure, right thigh
CPT/HCPCS: 77080